=== PATIENT | male | born 1985 | race Caucasian/White ===

== ENCOUNTER 2016-06-25 11:30 | Emergency (ER) | payer MEDICAID ==
[~2016-06-25] VITALS: Ht 162.6 cm; Wt 70.3 kg
[2016-06-25 11:33] VITALS: BP 139/88; PULSE 84; RESP 18; TEMP 97.3; O2SAT 97
== END 2016-06-25 11:43 | disposition left against medical advice (07) ==
LOC: SED 11:30
DX: R06.00 Dyspnea, unspecified (principal); Z53.21 Procedure and treatment not carried out due to patient leaving prior to being seen by health care provider